=== PATIENT | female | born 1980 | race Caucasian/White ===

== ENCOUNTER 2016-05-02 20:23 | Emergency (ER) | payer OTHER ==
[2016-05-02] VITALS (12 sets, daily range): PULSE 97–107; RESP 18
--- NOTE | 2016-05-02 21:36 | PD ---
HPI Chief Complaint Vomiting 3 today, dizziness and shortness of breath 1 month Date Seen: May 02, 2016 Time Seen: 21:25 Travel History International Travel<30 Days: No Contact w/Intl Traveler<30Days: No Known Affected Area: No History of Present Illness HPI 35-year-old primigravida at 30 weeks gestation who is a patient of Dr. Juarez. She reports 1 month history of feeling intermittently short of breath with feelings of dizziness like she might pass out. She reports that today she vomited 3 times also. She has been reviewing these symptoms with Dr. Juarez who has been unable to find an identifiable cause for her complaints. She denies any diarrhea, dysuria hematuria or frequency. No fever or chills. No cough or chest pain. Para: 0 : 1 History Past Medical History Narrative Medical Migraine headaches Obstetric History Obstetric History Uncomplicated care with the exception of the history of present illness symptoms Past Surgical History Narrative Surgical Oral surgery Family History Family History: Negative Social History Alcohol Use: No Tobacco Use: No Substance Abuse: No Review of Systems Except as stated in HPI: all other systems reviewed are Neg Physical Exam Narrative GENERAL: Well-nourished, well-developed patient. SKIN: Warm and dry. HEAD: Normocephalic and atraumatic. EYES: No scleral icterus. No injection or drainage. ENT: No nasal drainage noted. Mucous membranes pink. Airway patent. NECK: Supple, trachea midline. No JVD. CARDIOVASCULAR: Regular rate and rhythm without murmurs, gallops, or rubs. RESPIRATORY: Breath sounds equal bilaterally. No accessory muscle use. ABDOMEN/GI: Abdomen soft, non-tender, bowel sounds present, no rebound, no guarding Gravid to [-] weeks size Fundal Height: [-32] GENITOURINARY: External Genitalia: intact and normal in appearance Membranes: [intact or ruptured] Uterine Contractions: [-] FHT's: Category: [1-] Baseline: [-] Reactive: [Yes-] Variability: [-] Decels: [-] EXTREMITIES: No cyanosis or edema. BACK: Nontender without obvious deformity. No CVA tenderness. NEUROLOGICAL: Awake and alert. Motor and sensory grossly within normal limits. Five out of 5 muscle strength in all muscle groups. Normal speech. Data Data Vital Signs Reviewed: Yes Orders Vital Signs (Adult) .ON ADMISSION (05/02/16 21:23) ^ Labor Status (05/02/16 21:23) Urinalysis - C+S If Indicated (05/02/16 21:23) MDM Medical Record Reviewed: Yes Narrative Course / MDM Assessment: Primigravida at 30 weeks gestation with possible anxiety related symptoms Plan: Diagnosis Diagnosis: Primary Impression: 30 weeks gestation of Additional Impression: Shortness of breath due to in third trimester Kojo Kamara MD May 02, 2016 21:36
[2016-05-02 22:19] LABS: BLOOD, URINE NEG (NEG); CALCIUM OXALATE CRYSTALS,URINE MOD /hpf; COMMENT (UR) CULT NOT INDICATED; CULTURE IF INDICATED CULT NOT INDICATED; GLUCOSE,URINE TRACE mg/dL (NEG); KETONE, URINE NEG (NEG); MUCUS URINE FEW /lpf (OCC); NITRITE,URINE NEG (NEG); SQUAMOUS EPITHELIAL CELL URINE 3 /hpf (0-5); URINE COLOR YELLOW (YELLW/STRAW)
== END 2016-05-02 22:38 | disposition home or self-care (01) ==
LOC: HOBED 20:23
DX: O26.93 Pregnancy related conditions, unspecified, third trimester (principal); R06.02 Shortness of breath; R42 Dizziness and giddiness; R11.10 Vomiting, unspecified; Z3A.30 30 weeks gestation of pregnancy
CPT/HCPCS: 81001; 99285

== ENCOUNTER 2016-07-09 06:15 | Inpatient (IN) | payer OTHER ==
[2016-07-09] VITALS (73 sets, daily range): BP systolic 91–140; BP diastolic 43–88; PULSE 82–112; RESP 16–20; TEMP 97.7–98.5; O2SAT 99–100
[~2016-07-09] VITALS: Ht 162.6 cm; Wt 129.7 kg
[2016-07-09 07:06] LABS: BASOPHIL % 0.3 % (0.0-2.0); EOSINOPHIL % 0.1 % (0.0-4.0); HEMATOCRIT 34.3 % (35.0-46.0); HEMO FLAGS DIFF FINAL; LYMPH % 18.3 % (9.0-44.0); LYMPHOCYTE # 1.9 TH/MM3 (1.0-4.8); MEAN CELL VOLUME 83.8 FL (80.0-100.0); MEAN CORPUSCULAR HEMOGLOBIN 26.8 PG (27.0-34.0); MEAN CORPUSCULAR HGB CONC 31.9 % (32.0-36.0); MONO % 5.5 % (0.0-8.0); NEUT % 75.8 % (16.0-70.0); PLATELET COUNT 282 TH/MM3 (150-450); RED BLOOD COUNT 4.09 MIL/MM3 (4.00-5.30); RED CELL DISTRIBUTION WIDTH 15.8 % (11.6-17.2); WHITE BLOOD COUNT 10.6 TH/MM3 (4.0-11.0)
[2016-07-09 07:15] LABS: BACTERIA, URINE FEW /hpf; BLOOD, URINE NEG (NEG); COMMENT (UR) CULT NOT INDICATED; CULTURE IF INDICATED CULT NOT INDICATED; GLUCOSE,URINE NEG (NEG); KETONE, URINE TRACE mg/dL (NEG); MUCUS URINE MANY /lpf (OCC); NITRITE,URINE NEG (NEG); SQUAMOUS EPITHELIAL CELL URINE 6 /hpf (0-5); URINE COLOR YELLOW (YELLW/STRAW)
[2016-07-09] MEDS ORDERED: BENA25TA3 PO (07:18)
[2016-07-09] MEDS ORDERED: PRENTAB44 PO (07:18)
[2016-07-09] MEDS ORDERED: LACTATED RINGER'S 1000 ML INJ 1,000 ML IV PRN (08:04)
--- NOTE | 2016-07-09 08:08 | HHI.HP ---
HPI Chief Complaint 39 5/7 weeks for induction Date Seen: Jul 09, 2016 Time Seen: 08:00 Travel History International Travel<30 Days: No Contact w/Intl Traveler<30Days: No Known Affected Area: No History of Present Illness HPI for induction Para: 0 : 1 History Past Medical History Medical History: Denies Significant Hx Past Surgical History Surgical History: No Previous Surgery Family History Family History: Negative Social History Alcohol Use: No Tobacco Use: No Substance Abuse: No Allergies-Medications (Allergen,Severity, Reaction): Coded Allergies: Penicillin (Verified Allergy, Severe, Anaphylaxis, 07/09/16) Codeine (Verified Allergy, Mild, rash, 07/09/16) Home Meds Reported Medications Diphenhydramine (Benadryl Allergy)25 Mg Tab25 Mg PO Q6H PRN (ALLERGIES) Ref 0 07/09/16 Multivit-Min W/Fe-FA ( and Iron)1 Tab Tab1 Tab PO DAILY 07/09/16 Review of Systems Except as stated in HPI: all other systems reviewed are Neg Physical Exam Narrative GENERAL: Well-nourished, well-developed patient. SKIN: Warm and dry. HEAD: Normocephalic and atraumatic. EYES: No scleral icterus. No injection or drainage. ENT: No nasal drainage noted. Mucous membranes pink. Airway patent. NECK: Supple, trachea midline. No JVD. CARDIOVASCULAR: Regular rate and rhythm without murmurs, gallops, or rubs. RESPIRATORY: Breath sounds equal bilaterally. No accessory muscle use. BREASTS: Bilateral exam showed no masses , no retractions, no nipple discharge. ABDOMEN/GI: Abdomen soft, non-tender, bowel sounds present, no rebound, no guarding Gravid to [-] weeks size Fundal Height: [-] GENITOURINARY: External Genitalia: intact and normal in appearance BUS glands: [-] Cervix: [-] Dilatation: [-] Effacement: [-] Station: [-] Presentation: [-] Membranes: [intact or ruptured] Uterine Contractions: [-] FHT's: Category: [-] Baseline: [-] Reactive: [-] Variability: [-] Decels: [-] EXTREMITIES: No cyanosis or edema. BACK: Nontender without obvious deformity. No CVA tenderness. NEUROLOGICAL: Awake and alert. Motor and sensory grossly within normal limits. Five out of 5 muscle strength in all muscle groups. Normal speech. Data Data Vital Signs Reviewed: Yes Orders Complete Blood Count With Diff (07/09/16 06:47) Hold Clot (07/09/16 06:47) Abo/Rh Blood Type (07/09/16 06:47) Urinalysis - C+S If Indicated (07/09/16 06:47) Admit To Inpatient (07/09/16 ) Code Status (07/09/16 08:04) Vital Signs (Adult) .Per protocol (07/09/16 08:04) Heart (07/09/16 08:04) Amnioinfusion (07/09/16 08:04) Urinary Catheter Management .ONCE (07/09/16 08:04) Lactated Ringer's 1000 Ml Inj (Lr 1000 M (07/09/16 08:04) Lactated Ringer's 1000 Ml Inj (Lr 1000 M (07/09/16 08:04) Sodium Chlorid 0.9% 500 Ml Inj (Ns 500 M (07/09/16 08:15) Sodium Chlor 0.9% 1000 Ml Inj (Ns 1000 M (07/09/16 08:24) Lidocaine 1% Inj (50 Ml) (Xylocaine 1% I (07/09/16 08:15) Citric Acid-Sodium Citrate Liq (Bicitra (07/09/16 08:15) Fentanyl Inj (Fentanyl Inj) (07/09/16 08:15) Fentanyl Inj (Fentanyl Inj) (07/09/16 08:15) Resp Oxygen Non Rebreathe Mask (07/09/16 ) ^ Epidural / Intrathecal Infus (07/09/16 08:04) Oxytocin 30 Units-500ml Premix (Pitocin (07/09/16 08:15) Lidocaine 1% Inj (50 Ml) (Xylocaine 1% I (07/09/16 08:15) Light Mineral Oil (Muri-Lube Oil) (07/09/16 08:15) Inpatient Certification (07/09/16 ) Labs Laboratory Tests Test 07/09/16 06:40 White Blood Count 10.6 Red Blood Count 4.09 Hemoglobin 11.0 Hematocrit 34.3 Mean Corpuscular Volume 83.8 Mean Corpuscular Hemoglobin 26.8 Mean Corpuscular Hemoglobin 31.9 Concent Red Cell Distribution Width 15.8 Platelet Count 282 Mean Platelet Volume 7.5 Neutrophils (%) (Auto) 75.8 Lymphocytes (%) (Auto) 18.3 Monocytes (%) (Auto) 5.5 Eosinophils (%) (Auto) 0.1 Basophils (%) (Auto) 0.3 Neutrophils # (Auto) 8.0 Lymphocytes # (Auto) 1.9 Monocytes # (Auto) 0.6 Eosinophils # (Auto) 0.0 Basophils # (Auto) 0.0 CBC Comment DIFF FINAL Differential Comment Urine Color YELLOW Urine Turbidity HAZY Urine pH 6.0 Urine Specific [place] 1.030 Urine Protein 30 Urine Glucose (UA) NEG Urine Ketones TRACE Urine Occult Blood NEG Urine Nitrite NEG Urine Bilirubin NEG Urine Urobilinogen 2.0 Urine Leukocyte Esterase MOD Urine RBC LESS THAN 1 Urine WBC 2 Urine Squamous Epithelial 6 Cells Urine Bacteria FEW Urine Mucus MANY Microscopic Urinalysis Comment CULT NOT INDICATED Blood Type A POSITIVE Blood Bank Comment Band and Hold Assessment/Plan Problem List: (1) 39 weeks gestation of Assessment and Plan AROM pitocin at 2 cm Roger Herron MD Jul 09, 2016 08:08
[2016-07-09] MEDS ORDERED: LIDOCAINE HCL 1% 50 ML VIAL INFIL PRN (08:15)
[2016-07-09] MEDS ORDERED: OXYTOCIN 30 UNITS-500ML PREMIX 500 ML IV ONE (08:15)
[2016-07-09] MEDS ORDERED: OXYTOCIN 30 UNITS-500ML PREMIX 500 ML IV SCH (08:15)
[2016-07-09] MEDS ORDERED: MINERAL OIL 10 ML VIAL TOPICAL PRN (08:15)
[2016-07-09] MEDS ORDERED: LIDOCAINE HCL 1% 50 ML VIAL I-DERMAL PRN (08:15)
[2016-07-09] MEDS ORDERED: CITRIC ACID-SODIUM CITRATE LIQ 30 ML UDC PO SCH (08:15)
[2016-07-09] MEDS ORDERED: SODIUM CHLORID 0.9% 500 ML INJ 500 ML IV PRN (08:15)
[2016-07-09] MEDS ORDERED: SODIUM CHLOR 0.9% 1000 ML INJ 1,000 ML IV PRN (08:24)
[2016-07-09] MEDS: LACTATED RINGER'S 1000 ML INJ 1,000 ML IV SCH ×2 (08:43→18:19)
[2016-07-09] MEDS ORDERED: fentaNYL 2MCG-BUPIV 0.125% INJ 100 ML ONE (10:19)
[2016-07-09] MEDS ORDERED: NO SYSTEM NARCOTICS PRN (12:45)
[2016-07-09] MEDS ORDERED: fentaNYL 2MCG-BUPIV 0.125% 100 ML EPIDURAL SCH (12:45)
[2016-07-09] MEDS ORDERED: ePHEDrine/NS 25 MG/5 ML SYR IV PRN (12:45)
[2016-07-09] MEDS ORDERED: DO NOT ADMINISTER ANTICOAGULANTS PRN (12:45)
[2016-07-09] MEDS ORDERED: MEASLES, MUMPS, RUBELLA VACCINE 0.5 ML VIAL SQ ONE (16:00)
[2016-07-09] MEDS ORDERED: DIPHTH/TETANUS/ACEL PERTUSSIS (BOOSTER) 0.5 ML VIAL/PFS IM ONE (16:00)
[2016-07-09] MEDS ORDERED: ACETAMINOPHEN 325 MG TAB PO PRN (23:45)
[2016-07-09] MEDS ORDERED: oxyCODONE/ACETAMINOPHEN 5 MG/325 MG TAB PO PRN ×2 (23:45)
[2016-07-09] MEDS ORDERED: ALUMINUM/MAGNESIUM/SIMETH 30 ML CUP PO PRN (23:45)
[2016-07-09] MEDS ORDERED: SODIUM CHLORIDE 0.9% FLUSH 10 ML FLUSH IV FLUSH PRN (23:45)
[2016-07-09] MEDS ORDERED: WITCH HAZEL 50%/GLYCERIN 12.5% 40 PAD JAR TOPICAL PRN (23:45)
[2016-07-09] MEDS ORDERED: ZOLPIDEM TARTRATE 5 MG TAB PO PRN (23:45)
[2016-07-09] MEDS ORDERED: ONDANSETRON ODT 4 MG TAB PO PRN (23:45)
[2016-07-09] MEDS ORDERED: BENZOCAINE 20% TOPICAL SPRAY 60 ML CAN TOPICAL PRN (23:45)
--- NOTE | 2016-07-09 23:50 | PD.OB.DELI ---
Delivery Date: Jul 09, 2016 Anesthesia: Epidural Episiotomy: Right mediolateral Vaginal Delivery: Normal, Vacuum (2 pulls vacuum pulled off in 1 sec with no pressure, last pull vacuum applied on for 5 sec and head delivered. Caput limited the bid analyst ) Delayed cord clamping (45 sec): No (pale flaccid infant on delivery) : Female, Single One Minute : 4 Five Minute : 8 Weight: 9# Placenta: Spontaneous delivery, Intact, 3 vessel cord Laceration: Episiotomy, 2 deg Repair: Chromic running Roger Herron MD Jul 09, 2016 23:50
[2016-07-10] VITALS (13 sets, daily range): BP systolic 112–143; BP diastolic 44–87; PULSE 70–110; RESP 17–18; TEMP 98–98.9
[2016-07-10 00:06] LABS: BLOOD GAS BASE EXCESS -6.2 mmol/L (-2-2); BLOOD GAS O2 HGB SATURATION 9 % (90-100); CORD BLOOD GAS HCO3 21 mmol/L (21-29); CORD BLOOD GAS PCO2 55 mmHG (34-78); CORD BLOOD GAS PO2 11 mmHG (3.0-40.0); DRAW SITE CORD BLOOD; STAT YES
[2016-07-10] MEDS: DOCUSATE SODIUM 50 MG/SENNA 8.6 MG TAB PO PRN ×2 (06:03→20:21)
[2016-07-10] MEDS: IBUPROFEN 600 MG TAB PO PRN ×3 (06:03→20:21)
[2016-07-10] MEDS: LACTATED RINGER'S 1000 ML INJ 1,000 ML IV SCH ×2 (07:04→11:18)
--- NOTE | 2016-07-10 07:38 | HHI.OB ---
Subjective Post Day: 1 Remarks doing well Objective Vitals/I&O Vital Signs Date Time Temp Pulse Resp B/P Pulse Ox O2 Delivery O2 Flow Rate FiO2 07/10/16 01:45 70 18 129/69 07/10/16 01:45 98.9 07/10/16 01:01 109 120/58 07/10/16 00:55 17 07/10/16 00:46 110 112/44 07/10/16 00:43 98.1 07/10/16 00:39 18 07/10/16 00:31 109 120/87 07/10/16 00:25 18 07/10/16 00:16 100 143/72 07/10/16 00:02 18 07/10/16 00:01 110 135/68 07/09/16 23:54 98.2 07/09/16 23:54 18 07/09/16 23:47 107 140/81 07/09/16 23:45 111 100 07/09/16 21:31 108 111/60 07/09/16 21:15 18 07/09/16 21:01 104 101/47 07/09/16 20:41 18 07/09/16 20:31 106 111/50 07/09/16 20:15 18 07/09/16 20:01 93 113/73 07/09/16 19:45 18 07/09/16 19:31 103 91/71 07/09/16 19:15 98.5 18 07/09/16 19:01 108 128/67 07/09/16 18:31 109 130/56 07/09/16 18:01 101 119/59 07/09/16 18:00 97.7 07/09/16 17:31 103 120/65 07/09/16 17:01 98 124/88 07/09/16 16:31 98 102/68 07/09/16 16:02 93 106/43 07/09/16 15:55 98.0 07/09/16 15:32 96 114/83 07/09/16 15:01 97 121/78 07/09/16 14:45 17 07/09/16 14:31 90 127/70 07/09/16 14:01 92 122/73 07/09/16 13:45 18 07/09/16 13:31 89 118/78 07/09/16 13:15 97.7 07/09/16 13:01 85 98/51 07/09/16 12:47 86 07/09/16 12:45 16 111/62 07/09/16 12:33 91 07/09/16 12:30 111/58 07/09/16 12:20 92 07/09/16 12:20 100 07/09/16 12:15 91 100 07/09/16 12:10 101 100 07/09/16 12:05 84 100 07/09/16 12:01 88 115/73 07/09/16 12:00 18 07/09/16 12:00 99 99 07/09/16 11:55 98 100 07/09/16 11:51 105 115/67 07/09/16 11:50 96 07/09/16 11:46 82 118/67 07/09/16 11:45 91 07/09/16 11:41 97 112/66 07/09/16 11:40 99 07/09/16 11:40 89 07/09/16 11:36 95 105/68 07/09/16 11:31 91 101/52 07/09/16 11:30 90 07/09/16 11:26 98 104/61 07/09/16 11:25 90 07/09/16 11:25 100 07/09/16 11:21 88 109/69 07/09/16 11:20 102 07/09/16 11:16 100 105/56 07/09/16 11:15 102 07/09/16 11:11 100 109/67 07/09/16 11:10 112 07/09/16 11:10 100 07/09/16 11:06 90 132/82 07/09/16 11:05 91 07/09/16 11:01 100 129/77 07/09/16 11:00 93 07/09/16 11:00 17 07/09/16 11:00 93 110/70 07/09/16 10:57 96 07/09/16 10:55 87 07/09/16 10:55 100 07/09/16 10:51 84 132/84 07/09/16 10:45 88 07/09/16 10:00 20 07/09/16 10:00 90 119/79 07/09/16 09:56 98.1 07/09/16 09:22 92 132/68 07/09/16 09:00 20 07/09/16 09:00 18 07/09/16 08:54 93 132/78 07/09/16 08:00 18 Objective Remarks GENERAL: Well-nourished, well-developed patient. ABDOMEN/GI: Abdomen soft, non-tender. Fundus: Firm, non-tender at umbilicus. GENITOURINARY: Light to moderate bleeding. EXTREMITIES: No cyanosis or edema, non-tender, without signs of DVT. Medications and IVs Current Medications Medications (Trade) Dose Ordered Sig/Oswaldo Route Start Time Stop Time Status Last Admin Lactated Ringer's 1,000 ml @ 125 mls/hr Q8H IV 07/09/16 08:04 07/09/16 18:19 Lactated Ringer's 1,000 ml @ 3,000 mls/hr Q20M PRN IV 07/09/16 08:04 07/09/16 12:17 (NS 1000 ml Inj) 1,000 ml @ 100 mls/hr Q10H PRN IV 07/09/16 08:24 (fentaNYL INJ) 50 mcg Q1H PRN IV PUSH 07/09/16 08:15 (fentaNYL INJ) 100 mcg Q1H PRN IV PUSH 07/09/16 08:15 Mineral Oil 10 ml 10 ml UNSCH PRN TOPICAL 07/09/16 08:15 (Pitocin 30 Units-NS 500 ml Premix) 500 ml @ 0 mls/hr TITRATE IV 07/09/16 08:15 07/09/16 08:43 Miscellaneous Information No systemic narcotics to be given except... UNSCH PRN .XX 07/09/16 12:45 07/10/16 12:44 Miscellaneous Information DO NOT ADMINISTER ANY ANTICOAGUL... UNSCH PRN .XX 07/09/16 12:45 07/10/16 12:44 (fentaNYL 2MCG-BUPIV 0.125% INJ) 100 ml @ 0 mls/hr TITRATE EPIDURAL 07/09/16 12:45 07/09/16 18:20 (ePHEDrine/NS 25 MG/5 ML SYR) 10 mg UNSCH PRN IV 07/09/16 12:45 07/10/16 12:44 (NS Flush) 2 ml BID IV FLUSH 07/10/16 09:00 (NS Flush) 2 ml UNSCH PRN IV FLUSH 07/09/16 23:45 (Tylenol) 650 mg Q4H PRN PO 07/09/16 23:45 (Motrin) 600 mg Q6H PRN PO 07/09/16 23:45 07/10/16 06:03 (Percocet 5-325 Mg) 1 tab Q4H PRN PO 07/09/16 23:45 (Percocet 5-325 Mg) 2 tab Q4H PRN PO 07/09/16 23:45 07/10/16 06:05 (Americaine 20% Top Spr) 1 spray Q4H PRN TOPICAL 07/09/16 23:45 07/10/16 06:03 (Tucks Pads) 1 applic QID PRN TOPICAL 07/09/16 23:45 07/10/16 06:02 (Ivone-Colace) 2 tab Q12H PRN PO 07/09/16 23:45 07/10/16 06:03 (Ambien) 5 mg HS PRN PO 07/09/16 23:45 (Mag-Al Plus Susp Liq) 15 ml Q8H PRN PO 07/09/16 23:45 (Zofran Odt) 4 mg Q6H PRN PO 07/09/16 23:45 Assessment/Plan Problem List: (1) 39 weeks gestation of (2) Spontaneous vaginal delivery Roger Herron MD Jul 10, 2016 07:38
[2016-07-10] MEDS ORDERED: OXYC1TAB63 PO (07:39)
--- NOTE | 2016-07-10 07:39 | HHI.DCPOC ---
Discharge Care Plan Diagnosis: (1) Spontaneous vaginal delivery Report Symptoms to Your Doctor -Temperate above 100.5 degrees -Redness, of incision or excessive or foul smelling drainage -Unusual pain or calf pain -Increased vaginal bleeding -Painful or difficulty urinating -Feelings of extreme sadness or anxiety after 2 weeks Goals to Promote Your Health * To prevent worsening of your condition and complications * To maintain your health at the optimal level Directions to Meet Your Goals Take your medications as prescribed Follow your dietary instruction Follow activity as directed Ensure plenty of rest for recovery Drink fluids for hydration Keep your appointments as scheduled Take your immunizations and boosters as scheduled If your symptoms worsen call your PCP, if no PCP go to Urgent Care Center or Emergency Room Smoking is Dangerous to Your Health. Avoid second hand smoke Call the 24-hour crisis hotline for domestic abuse at Roger Herron MD Jul 10, 2016 07:39
[2016-07-10] MEDS ORDERED: SODIUM CHLORIDE 0.9% FLUSH 10 ML FLUSH IV FLUSH SCH (09:00)
[2016-07-10] MEDS: METHYLERGONOVINE MALEATE 0.2 MG TAB PO SCH ×3 (09:01→22:26)
[2016-07-11 08:21] VITALS: BP 102/60; PULSE 87; RESP 17; TEMP 97.9
[2016-07-11] MEDS: IBUPROFEN 600 MG TAB PO PRN (09:15)
--- NOTE | 2016-07-11 12:43 | HHI.OB ---
Subjective Post Day: 2 Remarks Pt doing well, ready for dc Objective Vitals/I&O Vital Signs Date Time Temp Pulse Resp B/P Pulse Ox O2 Delivery O2 Flow Rate FiO2 07/11/16 08:21 97.9 87 17 102/60 07/10/16 19:45 114/55 07/10/16 19:45 98.0 78 18 Objective Remarks GENERAL: Well-nourished, well-developed patient. ABDOMEN/GI: Abdomen soft, non-tender. Fundus: Firm, non-tender at umbilicus. GENITOURINARY: Light to moderate bleeding. EXTREMITIES: No cyanosis or edema, non-tender, without signs of DVT. Medications and IVs Current Medications Medications (Trade) Dose Ordered Sig/Oswaldo Route Start Time Stop Time Status Last Admin Lactated Ringer's 1,000 ml @ 125 mls/hr Q8H IV 07/09/16 08:04 07/09/16 18:19 Lactated Ringer's 1,000 ml @ 3,000 mls/hr Q20M PRN IV 07/09/16 08:04 07/09/16 12:17 (NS 1000 ml Inj) 1,000 ml @ 100 mls/hr Q10H PRN IV 07/09/16 08:24 (fentaNYL INJ) 50 mcg Q1H PRN IV PUSH 07/09/16 08:15 (fentaNYL INJ) 100 mcg Q1H PRN IV PUSH 07/09/16 08:15 Mineral Oil 10 ml 10 ml UNSCH PRN TOPICAL 07/09/16 08:15 Oxytocin 500 ml @ 0 mls/hr TITRATE IV 07/09/16 08:15 07/09/16 08:43 (fentaNYL 2MCG-BUPIV 0.125% INJ) 100 ml @ 0 mls/hr TITRATE EPIDURAL 07/09/16 12:45 07/09/16 18:20 (NS Flush) 2 ml BID IV FLUSH 07/10/16 09:00 (NS Flush) 2 ml UNSCH PRN IV FLUSH 07/09/16 23:45 (Tylenol) 650 mg Q4H PRN PO 07/09/16 23:45 (Motrin) 600 mg Q6H PRN PO 07/09/16 23:45 07/11/16 09:15 (Percocet 5-325 Mg) 1 tab Q4H PRN PO 07/09/16 23:45 07/10/16 22:27 (Percocet 5-325 Mg) 2 tab Q4H PRN PO 07/09/16 23:45 07/10/16 06:05 (Americaine 20% Top Spr) 1 spray Q4H PRN TOPICAL 07/09/16 23:45 07/10/16 06:03 (Tucks Pads) 1 applic QID PRN TOPICAL 07/09/16 23:45 07/10/16 06:02 (Ivone-Colace) 2 tab Q12H PRN PO 07/09/16 23:45 07/10/16 20:21 (Ambien) 5 mg HS PRN PO 07/09/16 23:45 (Mag-Al Plus Susp Liq) 15 ml Q8H PRN PO 07/09/16 23:45 (Zofran Odt) 4 mg Q6H PRN PO 07/09/16 23:45 Assessment/Plan Problem List: (1) 39 weeks gestation of (2) Spontaneous vaginal delivery Assessment and Plan PPD 2 s/p doing well, dc home Discharge Planning dc home Shavon Doran MD Jul 11, 2016 12:43
== END 2016-07-11 14:21 | disposition home or self-care (01) | DRG 775 ==
LOC: H2EA 06:15 → H1EA 07-10 01:26
PROVIDERS: ADMIT Obstetrics & Gynecology; ATTEND Obstetrics & Gynecology
PROC: 0W8NXZZ Division of Female Perineum, External Approach (ICD-10-PCS; principal; 2016-07-09)
PROC: 10D07Z6 Extraction of Products of Conception, Vacuum, Via Natural or Artificial Opening (ICD-10-PCS; 2016-07-09)
PROC: 3E033VJ Introduction of Other Hormone into Peripheral Vein, Percutaneous Approach (ICD-10-PCS; 2016-07-09)
PROC: 10907ZC Drainage of Amniotic Fluid, Therapeutic from Products of Conception, Via Natural or Artificial Opening (ICD-10-PCS; 2016-07-09)
PROC: 00HU33Z Insertion of Infusion Device into Spinal Canal, Percutaneous Approach (ICD-10-PCS; 2016-07-09)
PROC: 3E0R3CZ (ICD-10-PCS; 2016-07-09)
DX: O70.1 Second degree perineal laceration during delivery (principal); Z37.0 Single live birth; Z3A.39 39 weeks gestation of pregnancy
CPT/HCPCS: 59025; 81001; 82805; 85025; 86900; 86901; 90707; 90715; J2590; J7120